=== PATIENT | male | born 1965 | race American Indian/Alaskan Native ===

== ENCOUNTER 2018-08-27 08:31 | Emergency (ER) | payer OTHER ==
[2018-08-27 08:38] VITALS: BP 125/86
--- NOTE | 2018-08-27 09:11 | Emergency Department Report ---
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 steroid use MD Complaint: back pain -: Gradual, days(s) (1) Similar Symptoms Previously: No Place: work Radiation: right leg Severity: moderate Severity scale (0 -10): 6 Quality: aching Consistency: constant Improves With: walking Worsens With: sitting upright Context: while lifting Associated Symptoms: denies other symptoms - Related Data Previous Rx's Medication Instructions Recorded Last Taken Type Cyclobenzaprine [Flexeril] 10 mg PO TID PRN #15 tablet 08/27/18 Unknown Rx Naproxen [Naprosyn] 500 mg PO BID #20 tablet 08/27/18 Unknown Rx methylPREDNISolone [Medrol] 4 mg PO QAM #1 tab.ds.pk 08/27/18 Unknown Rx Allergies Allergy/AdvReac Type Severity Reaction Status Date / Time No Known Allergies Allergy Unverified 08/27/18 08:33 ED Review of Systems ROS: Stated complaint: BACK PAIN Other details as noted in HPI Comment: All other systems reviewed and negative Musculoskeletal: as per HPI, back pain ED Back Pain Physical Exam - Exam General: Vital signs noted. No distress. Alert and acting appropriately. Back/Abdomen: Yes Perilumbar Tenderness (on R, no midline ttp), Yes Straight Leg Raise Pain, No Abdominal Tenderness, No Perithoracic Tenderness, No Sacroiliac Tenderness, No Flank Tenderness Neuro: Yes Normal Sensation, Yes Normal DTR's, Yes Normal Gait, No Motor Weakness ED Course Vital Signs 08/27/18 08:36 Temperature 98.1 F Pulse Rate 90 Respiratory 18 Rate Blood Pressure 125/86 O2 Sat by Pulse 99 Oximetry ED Medical Decision Making - Medical Decision Making pt with sciatica normal exam no concern fx no signs cord compression no concern abscess meds, fu pcp/ortho - Differential Diagnosis strain, sciatica, fx unlikely Critical care attestation.: If time is entered above; I have spent that time in minutes in the direct care of this critically ill patient, excluding procedure time. ED Disposition Clinical Impression: Right sided sciatica Disposition: DC-01 TO HOME OR SELFCARE Is pt being admited?: No Condition: Good Instructions: Sciatica (ED) Prescriptions: Cyclobenzaprine [Flexeril] 10 mg PO TID PRN #15 tablet PRN Reason: Muscle Spasm methylPREDNISolone [Medrol] 4 mg PO QAM #1 tab.ds.pk Naproxen [Naprosyn] 500 mg PO BID #20 tablet Referrals: [facility] MD LISSETTE [Primary Care Provider] - 3-5 Days YEISON GUERRERO MD [Staff Physician] - 3-5 Days Time of Disposition: 09:10
== END 2018-08-27 09:18 | disposition home or self-care (01) ==
LOC: ED 08:31
DX: M54.41 Lumbago with sciatica, right side (principal)
CPT/HCPCS: 99282